=== PATIENT | female | born 1975 | race Caucasian/White ===

== ENCOUNTER 2019-03-18 21:18 | Inpatient (IN) | payer MEDICAID ==
[~2019-03-18] VITALS: Ht 160 cm; Wt 63.6 kg
[2019-03-18] MEDS ORDERED: PERTUSS(ACELL),DIPH,TET VAC/PF 0.5 ML VIAL IM ONE (22:45)
[2019-03-18 23:12] LABS: BASOPHILS % (AUTO) 0.7 % (0.0-2.0); EOSINOPHILS % (AUTO) 1.2 % (1.0-6.0); HEMATOCRIT 28.3 % (36-46); HEMOGLOBIN 8.9 g/dL (12.0-16.0); LYMPHOCYTES % (AUTO) 29.1 % (22.0-44.0); MEAN CORPUSCULAR HEMOGLOBIN 22.1 pg (26.0-34.0); MEAN CORPUSCULAR HGB CONC 31.3 G/dL (31.0-37.0); MEAN CORPUSCULAR VOLUME 71 fL (80-100); MONOCYTES # (AUTO) 0.6 K/uL (0.1-1.0); NEUTROPHILS # (AUTO) 4.2 K/uL (1.8-7.7); PLATELET COUNT (AUTO) 312 K/uL (150-450); RED BLOOD CELL COUNT(AUTO) 4.01 MIL/uL (4.00-5.20); RED CELL DISTRIBUTION WIDTH 17.6 % (11.5-14.5)
[2019-03-18 23:20] LABS: AMPHET/METH SCREEN,URINE POSITIVE (NEGATIVE); BARBITURATE SCREEN, URINE NEGATIVE (NEGATIVE); BENZODIAZEPINES SCREEN,URINE NEGATIVE (NEGATIVE); CANNABINOID SCREEN,URINE POSITIVE (NEGATIVE); COCAINE SCREEN,URINE NEGATIVE (NEGATIVE); METHADONE SCREEN, URINE NEGATIVE (NEGATIVE); OPIATE SCREEN,URINE NEGATIVE (NEGATIVE); PHENCYCLIDINE SCREEN,URINE NEGATIVE (NEGATIVE)
[2019-03-18 23:27] LABS: ANION GAP 11 mmol/L (8-16); CARBON DIOXIDE 23 mmol/L (22-29); CHLORIDE 104 mmol/L (98-107); CREATININE 0.72 mg/dL (0.60-1.30); GLOMERULAR FILTR. RATE CALC > 60 mL/min (>60); GLUCOSE,RANDOM 79 mg/dL (70-110); POTASSIUM 3.6 mmol/L (3.5-5.1); SODIUM SERUM 138 mmol/L (136-145); UREA NITROGEN, BLOOD 14 mg/dL (7-18)
[2019-03-18 23:30] LABS: ALANINE AMINOTRANSFERASE 14 U/L (12-78); ALBUMIN 3.6 g/dL (3.4-5.0); ALKALINE PHOSPHATASE 69 U/L (46-116); ASPARTATE AMINOTRANSFERASE 12 U/L (15-37); BILIRUBIN,TOTAL 0.3 mg/dL (0.1-1.0); TOTAL PROTEIN, SERUM 8.5 g/dL (6.4-8.2)
[2019-03-18] MEDS ORDERED: HALOPERIDOL 5 MG TABLET PO PRN (23:30)
[2019-03-19 05:13] VITALS: BP 141/96
[2019-03-19] MEDS ORDERED: GuaiFENesin/D-METHORPHAN [SUGAR-FREE] 200-20MG/10 ML SYRUP UDCUP PO PRN (06:15)
[2019-03-19] MEDS ORDERED: ACETAMINOPHEN 325 MG TABLET PO PRN (06:15)
[2019-03-19] MEDS ORDERED: IBUPROFEN 400 MG TABLET PO PRN (06:15)
[2019-03-19] MEDS ORDERED: DOCUSATE SODIUM 100 MG CAPSULE PO PRN (06:15)
[2019-03-19] MEDS ORDERED: CloNIDine HCL 0.1 MG TABLET PO PRN (06:15)
[2019-03-19] MEDS ORDERED: MAG HYDROX/AL HYDROX/SIMETH ES 30 ML SUSPENSION UDCUP PO PRN (06:15)
[2019-03-19] MEDS ORDERED: LOPERAMIDE HCL 2 MG CAPSULE PO PRN (06:15)
[2019-03-19] MEDS ORDERED: PETROLATUM,WHITE 28 GM JELLY TP PRN (06:15)
[2019-03-19] MEDS ORDERED: ALBUTEROL SULFATE HFA 90 MCG/PUFF 8 GM INHALER IH PRN (06:15)
[2019-03-19] MEDS ORDERED: MAGNESIUM HYDROXIDE SUSPENSION 30 ML UDCUP PO PRN (06:15)
[2019-03-19] MEDS ORDERED: NICOTINE 14 MG/24 HOUR PATCH TD PRN (06:15)
[2019-03-19] MEDS ORDERED: ONDANSETRON HCL 4 MG TABLET PO PRN (06:15)
[2019-03-19 07:36] LABS: CHOL/HDL RATIO 4.1 (3.9-5.7); FREE T4 (FREE THYROXINE) 1.51 ng/dL (0.76-1.46); THYROID STIMULATING HORMONE 0.9 uIU/mL (0.36-3.74)
[2019-03-19 08:28] VITALS: BP 161/92
[2019-03-19] MEDS: LORazepam 2 MG TABLET PO PRN (09:19)
[2019-03-19 10:00] VITALS: BP_SYST 158; BP_SYST 161; BP_DIAS 73; BP_DIAS 92
[2019-03-19] MEDS: FLUoxetine HCL 20 MG CAPSULE PO SCH (12:17)
[2019-03-19 16:01] VITALS: BP 125/70
[2019-03-19] MEDS: ZOLPIDEM TARTRATE 10 MG TABLET PO PRN (20:50)
[2019-03-20 05:57] VITALS: BP 127/71
[2019-03-20 07:49] LABS: BASOPHILS % (AUTO) 0.8 % (0.0-2.0); HEMATOCRIT 30.6 % (36-46); HEMOGLOBIN 9.3 g/dL (12.0-16.0); LYMPHOCYTES # (AUTO) 2.2 K/uL (1.0-4.8); LYMPHOCYTES % (AUTO) 34.8 % (22.0-44.0); MEAN CORPUSCULAR HEMOGLOBIN 21.4 pg (26.0-34.0); MEAN CORPUSCULAR HGB CONC 30.5 G/dL (31.0-37.0); MEAN CORPUSCULAR VOLUME 70 fL (80-100); MONOCYTES # (AUTO) 0.6 K/uL (0.1-1.0); MONOCYTES % (AUTO) 8.7 % (2.0-9.0); NEUTROPHILS # (AUTO) 3.4 K/uL (1.8-7.7); NEUTROPHILS % (AUTO) 53.7 % (40.0-70.0); PLATELET COUNT (AUTO) 323 K/uL (150-450); RED BLOOD CELL COUNT(AUTO) 4.35 MIL/uL (4.00-5.20); RED CELL DISTRIBUTION WIDTH 17.9 % (11.5-14.5)
[2019-03-20 07:56] LABS: HEMOGLOBIN A1C 5.8 % (4.5-6.2)
[2019-03-20 08:15] LABS: ALANINE AMINOTRANSFERASE 13 U/L (12-78); ALBUMIN 3.3 g/dL (3.4-5.0); ALKALINE PHOSPHATASE 70 U/L (46-116); ANION GAP 10 mmol/L (8-16); ASPARTATE AMINOTRANSFERASE 12 U/L (15-37); BILIRUBIN,TOTAL 0.3 mg/dL (0.1-1.0); CALCIUM, TOTAL 8.7 mg/dL (8.8-10.5); CARBON DIOXIDE 24 mmol/L (22-29); CHLORIDE 101 mmol/L (98-107); CHOL/HDL RATIO 4.3 (3.9-5.7); CHOLESTEROL 152 mg/dL (131-200); CREATININE 0.58 mg/dL (0.60-1.30); GLOMERULAR FILTR. RATE CALC > 60 mL/min (>60); GLUCOSE,RANDOM 74 mg/dL (70-110); HDL CHOLESTEROL 35 mg/dL (40-60); LDL CHOL (CALC.) 106 mg/dL (0-130); POTASSIUM 3.7 mmol/L (3.5-5.1); SODIUM SERUM 135 mmol/L (136-145); THYROID STIMULATING HORMONE 1.07 uIU/mL (0.36-3.74); TOTAL PROTEIN, SERUM 8.5 g/dL (6.4-8.2); TRIGLYCERIDES 57 mg/dL (15-150); UREA NITROGEN, BLOOD 10 mg/dL (7-18)
[2019-03-20 08:34] VITALS: BP 145/80
[2019-03-20] MEDS: FLUoxetine HCL 20 MG CAPSULE PO SCH (08:39)
[2019-03-20] MEDS: TOBRAMYCIN SULFATE 0.3% 5 ML OPHTHALMIC SOLUTION OS SCH (12:45)
[2019-03-20 16:25] VITALS: BP 188/113
[2019-03-20] MEDS: LORazepam 2 MG TABLET PO PRN (16:34)
[2019-03-20 17:37] VITALS: BP 147/97
[2019-03-20] MEDS ORDERED: LISINOPRIL 10 MG TABLET PO ONE (18:00)
[2019-03-21 00:30] VITALS: BP 120/69
[2019-03-21 08:26] VITALS: BP 124/75
[2019-03-21] MEDS: LISINOPRIL 10 MG TABLET PO SCH (08:54)
[2019-03-21] MEDS: TOBRAMYCIN SULFATE 0.3% 5 ML OPHTHALMIC SOLUTION OS SCH (08:54)
[2019-03-21] MEDS: FLUoxetine HCL 20 MG CAPSULE PO SCH (08:54)
[2019-03-21] MEDS ORDERED: FLUoxetine HCL 20 MG CAPSULE PO ONE (09:30)
[2019-03-21 16:02] VITALS: BP 145/85
[2019-03-21] MEDS: LORazepam 2 MG TABLET PO PRN (19:30)
[2019-03-21 20:28] VITALS: BP 140/77
[2019-03-22 00:38] VITALS: BP 142/84
[2019-03-22 08:32] VITALS: BP 158/91
[2019-03-22] MEDS: TOBRAMYCIN SULFATE 0.3% 5 ML OPHTHALMIC SOLUTION OS SCH (08:59)
[2019-03-22] MEDS: LISINOPRIL 10 MG TABLET PO SCH (09:00)
[2019-03-22] MEDS: FLUoxetine HCL 20 MG CAPSULE PO SCH (09:00)
[2019-03-22] MEDS: LORazepam 2 MG TABLET PO PRN ×2 (09:01→16:29)
[2019-03-22 14:41] VITALS: BP 122/78
[2019-03-22 16:25] VITALS: BP 135/79
[2019-03-22] MEDS: ZOLPIDEM TARTRATE 10 MG TABLET PO PRN (21:20)
[2019-03-23 05:55] VITALS: BP 150/90
[2019-03-23 08:55] VITALS: BP 153/70
[2019-03-23] MEDS: TOBRAMYCIN SULFATE 0.3% 5 ML OPHTHALMIC SOLUTION OS SCH (09:01)
[2019-03-23] MEDS: LISINOPRIL 10 MG TABLET PO SCH (09:05)
[2019-03-23] MEDS: FLUoxetine HCL 20 MG CAPSULE PO SCH (09:06)
[2019-03-23] MEDS: LORazepam 2 MG TABLET PO PRN ×2 (09:15→14:57)
[2019-03-23 14:20] VITALS: BP 129/73
[2019-03-23 16:58] VITALS: BP 125/76
[2019-03-24 06:48] VITALS: BP 137/82
[2019-03-24 08:22] VITALS: BP 138/92
[2019-03-24] MEDS: TOBRAMYCIN SULFATE 0.3% 5 ML OPHTHALMIC SOLUTION OS SCH (08:58)
[2019-03-24] MEDS: FLUoxetine HCL 20 MG CAPSULE PO SCH (09:00)
[2019-03-24] MEDS: LORazepam 2 MG TABLET PO PRN ×2 (09:00→16:15)
[2019-03-24] MEDS: LISINOPRIL 10 MG TABLET PO SCH (09:00)
[2019-03-24 16:10] VITALS: BP 126/84
[2019-03-25 04:49] VITALS: BP 138/82
[2019-03-25] MEDS: TOBRAMYCIN SULFATE 0.3% 5 ML OPHTHALMIC SOLUTION OS SCH (08:26)
[2019-03-25] MEDS: LISINOPRIL 10 MG TABLET PO SCH (08:27)
[2019-03-25] MEDS: FLUoxetine HCL 20 MG CAPSULE PO SCH (08:31)
[2019-03-25 08:42] VITALS: BP 134/85
[2019-03-25] MEDS: LORazepam 2 MG TABLET PO PRN (08:58)
[2019-03-25] MEDS ORDERED: FLUO-191 PO ×2 (09:21→09:29)
[2019-03-25] MEDS ORDERED: TOBR5DRO43 OS (09:26)
[2019-03-25] MEDS ORDERED: LISI-661 PO (09:27)
== END 2019-03-25 13:30 | disposition home or self-care (01) | DRG 740 ==
LOC: EMS 21:19 → B2S 23:30 → B3A 03-19 00:01 → UNDODISIN 03-21 14:30
PROVIDERS: ADMIT Psychiatry & Neurology Psychiatry; ATTEND Psychiatry & Neurology Psychiatry
PROC: 0XQHXZZ Repair Left Wrist Region, External Approach (ICD-10-PCS; principal; 2019-03-18)
DX: F33.2 Major depressive disorder, recurrent severe without psychotic features (principal); F12.10 Cannabis abuse, uncomplicated; F41.9 Anxiety disorder, unspecified; G47.00 Insomnia, unspecified; S61.512A Laceration without foreign body of left wrist, initial encounter; K59.00 Constipation, unspecified; F15.10 Other stimulant abuse, uncomplicated; Y04.0XXA Assault by unarmed brawl or fight, initial encounter; X78.8XXA Intentional self-harm by other sharp object, initial encounter; I10 Essential (primary) hypertension; H10.9 Unspecified conjunctivitis; Z79.899 Other long term (current) drug therapy; Z59.0 Homelessness
CPT/HCPCS: 12001; 83036; 84436; 84439; 84443; 90715; G0480

== ENCOUNTER 2019-04-17 15:54 | Emergency (ER) | payer MEDICAID ==
[~2019-04-17] VITALS: Ht 160 cm; Wt 63.6 kg
[~2019-04-17 15:54] MED LIST: FLUO-191 PO; LISI-661 PO; TOBR5DRO43 OS
[2019-04-17] MEDS ORDERED: HYDR25TA PO (17:27)
[2019-04-17] MEDS ORDERED: FERR325T24 PO (17:27)
[2019-04-17 18:08] VITALS: BP 131/69
== END 2019-04-17 18:44 | disposition home or self-care (01) ==
LOC: EMS 15:57
DX: F29 Unspecified psychosis not due to a substance or known physiological condition (principal); F41.9 Anxiety disorder, unspecified; F32.9 Major depressive disorder, single episode, unspecified; I10 Essential (primary) hypertension; Z79.899 Other long term (current) drug therapy